=== PATIENT | female | born 1980 | race Caucasian/White ===

== ENCOUNTER → 2017-10-20 14:10 | Outpatient (CLI) | payer OTHER, SELFPAY ==
[2017-10-20 15:06] LABS: Absolute Lymphocyte Count 2.26 X10^3/ul (0.83-4.51); Absolute Neutrophil Count 3.9 X10^3/uL (2.0-7.7); Basophil# 0.02 X10^3/uL; Basophil% 0.3 % (0-1); Eosinophil# 0.11 X10^3/uL; Eosinophils% 1.6 % (0-5); Hematocrit 31.3 % (37-47); Hemoglobin 9.7 g/dl (12.0-15.0); Lymphocyte # 2.26 X10^3/ul (4.0); Mean Corpuscular Volume 90.5 fL (81-99); Mean Platelet Vol. 9.6 fl (6.2-12.0); Monocyte# 0.59 X10^3/uL; Monocyte% 8.6 % (0-10); Neutrophil # 3.86 X10^3/uL (2.7-7.7); Neutrophil % 56.5 % (47-70); Platelet Count 407 K/mm3 (150-450); RBC Distribution Width CV 16.3 % (11.6-14.6); RBC Distribution Width SD 53.9 fl (35.1-43.9); Red Blood Count 3.46 M/mm3 (4.2-5.4); White Blood Count 6.8 K/mm3 (4.4-11.0)
[2017-10-20 15:10] LABS: POSITIVE COUNT NO; POSITIVE DIFFERENTIAL NO; POSITIVE MORPHOLOGY NO
[2017-10-20 15:32] LABS: Ferritin 4 ng/mL (8-252); Iron 18 ug/dL (50-170)
== END ==
PROVIDERS: Family Provider Family Medicine; PCP Family Medicine; Visit Provider Family Medicine
DX: D50.9 Iron deficiency anemia, unspecified (principal)
CPT/HCPCS: 36415; 82728; 83540; 85025

== ENCOUNTER → 2017-10-30 09:33 | Outpatient (CLI) | payer OTHER, SELFPAY ==
[2017-10-30 09:41] VITALS: BP 118/66; PULSE 66; RESP 18; TEMP 36.4; O2SAT 98
== END ==
PROVIDERS: Family Provider Family Medicine; PCP Family Medicine; Visit Provider Family Medicine
DX: D50.9 Iron deficiency anemia, unspecified (principal)
CPT/HCPCS: 96365; J1756; J7050; A4216

== ENCOUNTER → 2017-11-07 09:53 | Outpatient (CLI) | payer OTHER, SELFPAY ==
[2017-11-07 10:03] VITALS: BP 108/62; PULSE 55; RESP 16; TEMP 36.7; O2SAT 100
== END ==
PROVIDERS: Family Provider Family Medicine; PCP Family Medicine; Visit Provider Family Medicine
DX: D50.9 Iron deficiency anemia, unspecified (principal)
CPT/HCPCS: 96365; J1756; A4216

== ENCOUNTER → 2017-11-27 10:28 | Outpatient (CLI) | payer OTHER, SELFPAY ==
[2017-11-27 10:34] VITALS: BP 115/60; PULSE 75; RESP 18; TEMP 36.3; O2SAT 97
== END ==
PROVIDERS: Family Provider Family Medicine; PCP Family Medicine; Visit Provider Family Medicine
DX: D50.9 Iron deficiency anemia, unspecified (principal)
CPT/HCPCS: 96365; J1756; A4216

== ENCOUNTER → 2017-12-02 10:28 | Outpatient (CLI) | payer OTHER, SELFPAY ==
[2017-12-02 10:34] VITALS: BP 117/66; PULSE 60; RESP 18; TEMP 36.5
== END ==
PROVIDERS: Family Provider Family Medicine; PCP Family Medicine; Visit Provider Family Medicine
DX: D50.9 Iron deficiency anemia, unspecified (principal)
CPT/HCPCS: 96365; J1756; J7050; A4216

== ENCOUNTER → 2018-02-20 10:05 | Outpatient (CLI) | payer OTHER, SELFPAY ==
--- NOTE | 2018-02-20 10:05 | DT_ITS ---
This patient was seen during an EMR downtime February 16, 2018 - February 23, 2018. This patient may have a combination of paper and electronic documentation or all paper documentation. All documentation is viewable within the e-chart portion of [facility] for each patient visit.
[2018-02-20 12:54] LABS: Basophil% 0.3 % (0-1); Eosinophils% 0.9 % (0-5); Hematocrit 31.4 % (37-47); Lymphocyte % 24.8 % (19-41); Mean Corp Hgb Conc 31.8 g/gl (32-36); Mean Corpuscular Hgb 28.1 pg (27.0-32.0); Mean Corpuscular Volume 88.2 fL (81-99); Mean Platelet Vol. 9.5 fl (6.2-12.0); Monocyte% 6.7 % (0-10); Neutrophil # 4.52 X10^3/uL (2.7-7.7); Neutrophil % 67.2 % (47-70); POSITIVE COUNT NO; POSITIVE DIFFERENTIAL NO; POSITIVE MORPHOLOGY NO; Platelet Count 403 K/mm3 (150-450); RBC Distribution Width CV 15.9 % (11.6-14.6); RBC Distribution Width SD 51.7 fl (35.1-43.9); Red Blood Count 3.56 M/mm3 (4.2-5.4); White Blood Count 6.7 K/mm3 (4.4-11.0)
[2018-02-20 12:55] LABS: Absolute Lymphocyte Count 1.67 X10^3/ul (0.83-4.51); Absolute Neutrophil Count 4.5 X10^3/uL (2.0-7.7); Basophil# 0.02 X10^3/uL; Eosinophil# 0.06 X10^3/uL; Lymphocyte # 1.67 X10^3/ul (4.0); Monocyte# 0.45 X10^3/uL; Total Cells Counted 0.01 (MANUAL DIFF)
[2018-02-20 14:46] LABS: Ferritin 8 ng/mL (8-252); Iron 90 ug/dL (50-170)
== END ==
PROVIDERS: Family Provider Family Medicine; PCP Family Medicine; Visit Provider Family Medicine
DX: D50.9 Iron deficiency anemia, unspecified (principal)
CPT/HCPCS: 36415; 82728; 83540; 85025

== ENCOUNTER → 2018-10-09 11:35 | Outpatient (CLI) | payer OTHER, SELFPAY ==
[2018-10-09 12:34] LABS: Absolute Lymphocyte Count 1.57 X10^3/ul (0.83-4.51); Absolute Neutrophil Count 5.2 X10^3/uL (2.0-7.7); Basophil# 0.03 X10^3/uL; Basophil% 0.4 % (0-1); Eosinophil# 0.06 X10^3/uL; Eosinophils% 0.8 % (0-5); Hematocrit 35.1 % (37-47); Hemoglobin 10.8 g/dl (12.0-15.0); Lymphocyte # 1.57 X10^3/ul (4.0); Lymphocyte % 21.1 % (19-41); Mean Corp Hgb Conc 30.8 g/gl (32-36); Mean Corpuscular Hgb 28.2 pg (27.0-32.0); Mean Corpuscular Volume 91.6 fL (81-99); Mean Platelet Vol. 9.9 fl (6.2-12.0); Monocyte# 0.57 X10^3/uL; Monocyte% 7.7 % (0-10); Neutrophil # 5.19 X10^3/uL (2.7-7.7); Neutrophil % 69.9 % (47-70); Platelet Count 412 K/mm3 (150-450); RBC Distribution Width CV 14.7 % (11.6-14.6); RBC Distribution Width SD 49.2 fl (35.1-43.9); Red Blood Count 3.83 M/mm3 (4.2-5.4); White Blood Count 7.4 K/mm3 (4.4-11.0)
[2018-10-09 12:38] LABS: POSITIVE COUNT NO; POSITIVE DIFFERENTIAL NO; POSITIVE MORPHOLOGY NO
[2018-10-09 12:39] LABS: Ferritin 8 ng/mL (8-252); Iron 37 ug/dL (50-170)
== END ==
PROVIDERS: Family Provider Family Medicine; PCP Family Medicine; Referring Provider Family Medicine; Visit Provider Family Medicine
DX: D50.9 Iron deficiency anemia, unspecified (principal); K91.1 Postgastric surgery syndromes
CPT/HCPCS: 36415; 82728; 83540; 85025

== ENCOUNTER → 2019-03-09 | Outpatient (CLI) | payer OTHER, SELFPAY ==
[2019-03-09 13:07] LABS: Absolute Lymphocyte Count 1.78 X10^3/ul (0.83-4.51); Absolute Neutrophil Count 4.1 X10^3/uL (2.0-7.7); Basophil# 0.03 X10^3/uL; Basophil% 0.5 % (0-1); Eosinophil# 0.09 X10^3/uL; Eosinophils% 1.4 % (0-5); Hematocrit 29.6 % (37-47); Hemoglobin 8.9 g/dl (12.0-15.0); Lymphocyte # 1.78 X10^3/ul (4.0); Lymphocyte % 27.3 % (19-41); Mean Corp Hgb Conc 30.1 g/gl (32-36); Mean Corpuscular Hgb 22.5 pg (27.0-32.0); Mean Corpuscular Volume 74.7 fL (81-99); Mean Platelet Vol. 9.3 fl (6.2-12.0); Monocyte# 0.53 X10^3/uL; Monocyte% 8.1 % (0-10); Neutrophil # 4.07 X10^3/uL (2.7-7.7); Neutrophil % 62.5 % (47-70); Platelet Count 433 K/mm3 (150-450); RBC Distribution Width CV 15.7 % (11.6-14.6); RBC Distribution Width SD 41.9 fl (35.1-43.9); Red Blood Count 3.96 M/mm3 (4.2-5.4); White Blood Count 6.5 K/mm3 (4.4-11.0)
[2019-03-09 13:10] LABS: POSITIVE COUNT NO; POSITIVE DIFFERENTIAL NO
[2019-03-09 13:11] LABS: Differential Indicated SCAN CRITERIA MET; POSITIVE MORPHOLOGY YES
[2019-03-09 13:40] LABS: Ferritin 2 ng/mL (8-252); Iron 14 ug/dL (50-170)
== END | disposition home or self-care (01) ==
PROVIDERS: Family Provider Family Medicine; PCP Family Medicine; Referring Provider Family Medicine; Visit Provider Family Medicine
DX: D50.9 Iron deficiency anemia, unspecified (principal)
CPT/HCPCS: 36415; 82728; 83540; 85025

== ENCOUNTER → 2019-03-16 | Outpatient (CLI) | payer OTHER, SELFPAY ==
[2019-03-16 12:39] VITALS: BP 106/55; PULSE 64; RESP 16; TEMP 36.7; O2SAT 99; BMI 35.3
== END | disposition home or self-care (01) ==
LOC: MEDOUTP 12:35
PROVIDERS: Family Provider Family Medicine; PCP Family Medicine; Referring Provider Family Medicine; Visit Provider Family Medicine
DX: D50.9 Iron deficiency anemia, unspecified (principal)
CPT/HCPCS: 96365; J1756; J7050; A4216

== ENCOUNTER → 2019-03-26 | Outpatient (CLI) | payer OTHER, SELFPAY ==
[2019-03-16 12:39] VITALS: BMI 35.3
[2019-03-26 13:58] VITALS: BP 120/52; PULSE 76; RESP 16; TEMP 36.6; O2SAT 100; BMI 35.5
== END | disposition home or self-care (01) ==
LOC: MEDOUTP 13:26
PROVIDERS: Family Provider Family Medicine; PCP Family Medicine; Referring Provider Family Medicine; Visit Provider Family Medicine
DX: D50.9 Iron deficiency anemia, unspecified (principal)
CPT/HCPCS: 96365; J1756; J7050; A4216

== ENCOUNTER 2019-04-11 13:15 | Emergency (ER) | payer OTHER, SELFPAY ==
[2019-03-26 13:58] VITALS: BMI 35.5
[2019-04-11 13:15] VITALS: BP 103/65; PULSE 66; RESP 14; TEMP 36.6; O2SAT 99; BMI 35.2
--- NOTE | 2019-04-11 13:37 | RAD_ITS ---
STUDY: X-RAY - RIGHT ANKLE REASON FOR EXAM: Female, 39 years old. Injury and fall TECHNIQUE: 3 view(s) of the ankle. COMPARISON: None. FINDINGS: Nondisplaced lateral malleolar fracture. Oblique fracture of the medial malleolus also seen. No definite fracture of the posterior malleolus seen however. Anterior process of the calcaneus is within normal limits. Subtle nondisplaced fracture of the base of the fifth metatarsal also seen. IMPRESSION: Nondisplaced fracture of the base of the fifth metatarsal which appears slightly comminuted. Nondisplaced fracture of the medial malleolus and comminuted oblique fracture of the distal tibia extending into the medial malleolus. Electronically Signed: Ananth Perez, at 13:56 EDT Tel , Service support , RAD/Ankle min 3 Views
--- NOTE | 2019-04-11 13:42 | ED.VIS.LOWEX ---
History of Present Illness <ZimmermanJamie - Last Filed: 04/11/19 14:26> Informant: Patient Occurred: Yesterday Mechanism/Context: Fall Onset: Yesterday Context: Sudden Onset Timing: Continuous Quality of Pain: Sharp Location: Right ankle Current Severity: Moderate Maximum Severity: Severe Worsened by: Movement, ambulation Relieved by: Rest Associated Symptoms: - - Swelling and bruising. Negative for: Parasthesia, Weakness, Loss of Funtion Narrative: 39-year-old female presents with right ankle injury. Patient was walking in high heels last night inverted her right ankle and fell to the ground. She has been having pain and swelling in her right ankle and woke up this morning with bruising as well. She is still able to ambulate. She has not had any numbness tingling or weakness. She denies any other injuries. Tetanus Immunization: <5 years Prior similar symptoms: No Recent Illness/Hospitalization: No <Angel Rodriguez - Last Filed: 04/11/19 14:30> Chief Complaint: Lower Extremity Injury Past Medical History <ErasmoJamie - Last Filed: 04/11/19 14:26> Prior records reviewed: Yes Past Medical History: None Surgical History: no surgical history Lives: With Family Smoking Status: Never smoker Alcohol: Occasional Drugs: None <Angel Rodriguez - Last Filed: 04/11/19 14:30> - Allergies and Home Meds Allergies/Adverse Reactions: Allergies No Known Allergies Allergy (Verified 04/11/19 13:17) Primary Care Physician: Jalen Ball DO [Primary Care Provider] - Ej Castro MD [STAFF PHYSICIAN] - Review of Systems All systems negative except as indicated General: Denies: Chills, Fever Musculoskeletal: Reports: Extremity Pain Neurological: Denies: Weakness, Parasthesia <Angel Rodriguez - Last Filed: 04/11/19 14:30> Physical Exam Vital Signs/Narrative: Vital Signs Temp Pulse Resp BP Pulse Ox 04/11/19 13:15 97.9 F 66 14 103/65 99 <ZimmermanJamie - Last Filed: 04/11/19 14:26> Vital Signs/Narrative: Vital Signs Temp Pulse Resp BP Pulse Ox 04/11/19 13:15 97.9 F 66 14 103/65 99 Inital Vital Signs reviewed: Yes - Extremity Exam Right Ankle: Contusion, Edema, Limited ROM, - - Swelling and bruising right lateral ankle around the lateral malleolus with bony tenderness in this area. No proximal fibular tenderness on palpation. No bony tenderness of the foot or at the base of the fifth metatarsal. Limited plantarflexion and dorsiflexion secondary to pain and swelling. DP and PT pulse normal. Normal capillary refill and sensation of all 5 toes. General: Well nourished, Well developed Head: Normocephalic, Atraumatic Eyes: Perrl, EOMI ENT: No Trauma Neck: Nontender, Full ROM Cardiovascular: Regular rate, Regular rhythm Respiratory: No distress, CTA bilaterally, Chest nontender Abdomen: Soft, Nontender, Nondistended, Normal bowel sounds, No masses Back: Nontender Skin: Normal color, No rash, Trauma Neurological: Alert, Oriented x3 Psychological: Normal affect, Normal Mood <Angel Rodriguez - Last Filed: 04/11/19 14:30> Diagnostic/Tx/Re-eval - Medical Decision Making Evaluate in this patient with our physician assistant chief engineer. Fell yesterday in her home. Twisting her right ankle causing pain and swelling. Today when she is unable to bear weight she decided come in to have it evaluated. Physical exam HEENT, heart and lung abdominal exam are unremarkable. Back is nontender. She is moving all 4 extremities. Neurovascular intact. She has mild swelling and pain on palpation to both the medial lateral malleolus and the base of her fifth metatarsal. Foot otherwise neurovascularly intact. She is able to wiggle her toes. Has a normal DP pulse. Has normal touch sensation. X-rays of the right ankle reveals a bimalleolar nondisplaced fracture both the medial and lateral malleolus. Also a fracture of the base of the fifth metatarsal. Patient placed in a short leg posterior splint by ER. Nonweightbearing and crutches. Impression: 1. Acute fall 2. Acute right ankle bimalleolar fracture and base of the fifth metatarsal fracture 3. Short leg posterior splint by ER <Jamie Zimmerman - Last Filed: 04/11/19 14:26> Procedures - Lower Extremity Splints Lower Extremity Splint: OrthogMiguel johnruroxy Splint Fabrication: Fabricated Location: Right <Angel Rodriguez - Last Filed: 04/11/19 14:30> ED Disposition <Jamie Zimmerman - Last Filed: 04/11/19 14:26> <Angel Rodriguez - Last Filed: 04/11/19 14:30> - Plan for ED Patient: Disposition: Home or Assisted Living Diagnosis: Bimalleolar fracture of right ankle, Fracture of fifth metatarsal bone Instructions: FRACTURE, Ankle (General), FRACTURE, Foot Referrals: Jalen Ball DO [Primary Care Provider] - Ej Castro MD [STAFF PHYSICIAN] -
[2019-04-11 14:45] VITALS: BP 104/62; PULSE 74; RESP 18
== END 2019-04-11 14:46 | disposition home or self-care (01) ==
PROVIDERS: Emergency Provider Physician Assistant Medical; Family Provider Family Medicine; PCP Family Medicine
DX: S82.844A Nondisplaced bimalleolar fracture of right lower leg, initial encounter for closed fracture (principal); S92.354A Nondisplaced fracture of fifth metatarsal bone, right foot, initial encounter for closed fracture; X50.1XXA Overexertion from prolonged static or awkward postures, initial encounter; Y93.01 Activity, walking, marching and hiking; Y92.89 Other specified places as the place of occurrence of the external cause; Y99.8 Other external cause status
CPT/HCPCS: 29515; 73610; 99283

== ENCOUNTER → 2019-04-12 | Outpatient (CLI) | payer OTHER, SELFPAY ==
[2019-04-11 13:15] VITALS: BMI 35.2
--- NOTE | 2019-04-12 15:28 | EKG12_ITS ---
Test Reason : PRE-OP Blood Pressure : / mmHG Vent. Rate : 076 BPM Atrial Rate : 076 BPM P-R Int : 138 ms QRS Dur : 098 ms QT Int : 408 ms P-R-T Axes : 029 019 -06 degrees QTc Int : 459 ms Normal sinus rhythm Normal ECG Confirmed by SHITAL CAMPOS, SOCORRO ([id number]), social media editor TRISTIN GREEN ([id number]) on 04/14/2019 10:33:21 AM Referred By: Bonnie Gandhi Confirmed By:SOCORRO ISAACS MD
[2019-04-12 15:45] LABS: Hematocrit 30.6 % (37-47); Hemoglobin 9.3 g/dL (12.0-15.0); Mean Corp Hgb Conc 30.4 g/dL (32-36); Mean Corpuscular Volume 79.1 fL (81-99); Mean Platelet Vol. 9.9 fl (6.2-12.0); POSITIVE MORPHOLOGY YES; RBC Distribution Width CV 20.5 % (11.6-14.6); RBC Distribution Width SD 57.5 fl (35.1-43.9); Red Blood Count 3.87 M/mm3 (4.2-5.4); White Blood Count 7.2 K/mm3 (4.4-11.0)
[2019-04-12 16:05] LABS: Scan Indicated on CBC? Y/N YES- FLAGS NOTED
[2019-04-12 16:23] LABS: Anion Gap 6 (5-15); BUN 10 mg/dL (7-18); BUN/Creat Ratio 13.4 RATIO (10-20); Calcium,Total 8.4 mg/dL (8.5-10.1); Chloride 111 mmol/L (98-107); Creatinine, Serum 0.75 mg/dL (0.55-1.02); EST Glomerular Filtration Rate 92 mL/min (>60); Est Glom Filt Rate - Afr Amer 111 mL/min (>60); Glucose 207 mg/dL (74-106); Potassium 3.8 mmol/L (3.5-5.1); Sodium Level 141 mmol/L (136-145)
[2019-04-12 18:08] LABS: Platelet Count 355 K/mm3 (150-450)
[2019-04-12 22:01] LABS: Vitamin D,25 Hydroxy 22.7 ng/mL (29.95-100.01)
== END | disposition home or self-care (01) ==
LOC: LAB 15:11
PROVIDERS: Family Provider Family Medicine; PCP Family Medicine; Referring Provider Podiatrist Foot & Ankle Surgery; Visit Provider Podiatrist Foot & Ankle Surgery
DX: Z01.818 Encounter for other preprocedural examination (principal)
CPT/HCPCS: 36415; 80048; 82306; 85027; 86850; 86900; 93005

== ENCOUNTER → 2019-04-13 | Outpatient (CLI) | payer OTHER, SELFPAY ==
[2019-04-11 13:15] VITALS: BMI 35.2
[2019-04-13 17:22] LABS: Hemoglobin A1c 4.9 % (4.2-6.3)
== END | disposition home or self-care (01) ==
LOC: LAB.FUTURE 14:56
PROVIDERS: Family Provider Family Medicine; PCP Family Medicine; Referring Provider Podiatrist Foot & Ankle Surgery; Visit Provider Podiatrist Foot & Ankle Surgery
DX: S82.841A Displaced bimalleolar fracture of right lower leg, initial encounter for closed fracture (principal); S92.352A Displaced fracture of fifth metatarsal bone, left foot, initial encounter for closed fracture
CPT/HCPCS: 36415; 83036

== ENCOUNTER 2019-04-20 05:50 | Day surgery (SDC) | payer OTHER, SELFPAY ==
[2019-04-20 06:33] LABS: Internal QC Validated? YES +Cl - CLEAR BKGD; Pregnancy, Urine Negative Negative
[2019-04-20 06:38] LABS: International Normalized Ratio 1.1; Prothrombin Time (Protime)PT. 14.4 SECONDS (11.7-14.9)
[2019-04-20 06:39] LABS: Partial Thromboplast Time 32.9 Seconds (24.1-36.2)
[2019-04-20 06:41] VITALS: BP 106/58; PULSE 68; RESP 16; TEMP 36.3; O2SAT 98; BMI 36.0
--- NOTE | 2019-04-20 07:30 | RAD_ITS ---
STUDY: X-RAY - RIGHT ANKLE REASON FOR EXAM: Female, 39 years old. ORIF of the fibular fracture. TECHNIQUE: For intraoperative view(s) of the ankle. COMPARISON: None. FINDINGS: Intraoperative imaging provided for open reduction and fixation of the distal fibular fracture. RAD/Ankle min 3 Views IMPRESSION: Intraoperative imaging provided for open reduction and fixation of the distal fibular fracture. Electronically Signed: Jon Pederson, at 10:16 EDT , Service support ,
[2019-04-20] MEDS: Cefazolin 2 GM in 0.9% Normal Saline 100 ML IV (07:34)
--- NOTE | 2019-04-20 08:10 | RAD_ITS ---
STUDY: X-RAY - RIGHT FOOT CLINICAL: Female, 39 years old. ORIF. TECHNIQUE: 6 cone-down intraoperative view(s) of the foot. COMPARISON: Comparison is made with prior examination dated April 11, 2019. FINDINGS: The patient is status post open reduction and internal fixation of the transverse fracture at the base of the fifth metatarsal. There is good alignment. RAD/Foot min 3 Views IMPRESSION: Intraoperative services provided for open reduction internal fixation of the transverse fracture at the base of the fifth metatarsal. There is good alignment. Electronically Signed: Jon Pederson, at 10:09 EDT , Service support ,
[2019-04-20] MEDS: Bupivacaine Mpf 0.5% 30 ML VIAL (08:30)
[2019-04-20 10:28] VITALS: BP 106/58; BP 117/69; PULSE 89; RESP 14; TEMP 36.8; O2SAT 98
--- NOTE | 2019-04-20 10:34 | RAD_ITS ---
STUDY: X-RAY - RIGHT ANKLE REASON FOR EXAM: Female, 39 years old. Status post ORIF of the distal fibula and distal tibia. TECHNIQUE: 3 view(s) of the ankle. COMPARISON: Comparison is made with prior study dated April 20, 2019 and April 11, 2019. FINDINGS: The patient is status post open reduction and internal fixation of distal tibial and fibular fractures. There is good alignment.. Normal tibiotalar articulation and ankle mortise. Normal visualized talus and calcaneus. The visualized subtalar, talonavicular, calcaneocuboid and tarsal articulations are normal. Postoperative soft tissue changes. RAD/Ankle min 3 Views IMPRESSION: Status post open reduction and internal fixation of the distal fibular and tibial fractures. There is good alignment. Postoperative soft tissue swelling. Electronically Signed: Jon Pederson, at 13:45 EDT , Service support ,
--- NOTE | 2019-04-20 10:35 | RAD_ITS ---
STUDY: X-RAY - RIGHT FOOT CLINICAL: Female, 39 years old. Postoperative examination. TECHNIQUE: 3 view(s) of the foot. COMPARISON: Comparison is made with prior examination dated April 20, 2019 and April 11, 2019. FINDINGS: Normal talus, calcaneus, and tarsal bones. Normal visualized subtalar, talonavicular, calcaneocuboid, tarsal and tarsometatarsal articulations. The patient is status post screw fixation of the transverse fracture at the base of the fifth metatarsal. Good alignment. The patient is also status post open reduction and internal fixation of the distal fibular and tibial fractures. Normal metatarsophalangeal joint of the great toe. Normal tibial and fibular sesamoid bones. Normal interphalangeal joint of the great toe. Normal phalanges of the great toe. Normal second through fifth metatarsophalangeal joints. Normal interphalangeal joints and phalanges of the lesser toes. Postoperative soft tissue changes. RAD/Foot min 3 Views IMPRESSION: Status post open reduction and internal fixation of the transverse fracture at the base of the fifth metatarsal as well as the fracture involving the distal fibula and distal tibia. There is good alignment. Postoperative soft tissue changes. Electronically Signed: Jon Pederson, at 13:44 EDT , Service support ,
--- NOTE | 2019-04-20 10:39 | PCM.OPRPT ---
Report of Operation Date of Procedure: 04/20/19 Pre-Operative Diagnosis: R bimalleolar fx; R 5th metatarsal fracture Post-Operative Diagnosis: same Surgery/Procedure Performed:: R ankle bimalleolar ORIF; R 5th metatarsal ORIF junior linux administrator: Soo Maldonado Type of Anesthesia:: General/Regional, General/Supplemental Estimated Blood Loss (mL): minimal Description of Procedure: Indications: Pt is a 39yo F who fell 04/10/19 while wearing high heels. She sustained a R bimalleolar fracture and R 5th metatarsal base fracture. She was seen in the ER and then followed up in my clinic. Nonoperative and operative interventions were discussed. PT elected surgical intervention given the nature of her fractures. She was seen by her PCP for pre operative medical clearance and risk stratification, along with pre operative labs and studies. Pt presents today for surgical intervention. Pt is aware I will be leaving the practice at the end of the month. She was given the opportunity to see another surgeon in the practice or community. She is aware I will not be part of her entire post operative period. She understands and agreed to have surgery by me knowing this. All risks, complications, and alternatives were discussed with the patient, and the patient signed an informed consent. No guarantees were given. Procedure: On 04/20/2019, Liza Gomez was visually and verbally identified in the preoperative holding area. The consent form was again reviewed with the patient, as were all risks, complications, and alternatives and the patient wished to proceed with the proposed surgery. The right foot/ankle was marked as the correct operative extremity. The patient was brought to the operating room and placed on the operating room table in the normal SUPINE position. After induction by anesthesia, a surgical time out was performed and all present were in agreement. a pneumatic thigh tourniquet was then placed. At this time the right lower extremity was prepped and draped in the usual sterile fashion. after exsanguination with an esmarch the tourniquet was inflated to 300 mmHg. At this time attention was directed to the right lateral ankle. Using a #15 blade a curvilinear incision was made over the distal fibular fracture.The incision was bluntly carried deep through the subcutaneous tissues with careful attention paid to all bleeders, which were clamped and tied or bovied as necessary. All vital neurovascular structures were retracted. The fracture was identified. Using ronguers and a #15 blade all impinging soft tissue was removed. The fracture was distracted and reduced. This was held by a temporary k wire. Reduction was confirmed by direct visualization and on intraoperative fluoroscopy. A anne plate was then placed using a combination of nonlocking and locking screws. Plate placement and screw length was verified on intraoperative fluoroscopy. The k wire was removed. At this time attention was directed to the right medial ankle. Using a #15 blade a curvilinear incision was made over the medial malleolar fracture.The incision was bluntly carried deep through the subcutaneous tissues with careful attention paid to all bleeders, which were clamped and tied or bovied as necessary. All vital neurovascular structures were retracted. Using ronguers and a #15 blade all impinging soft tissue was removed. The fracture was distracted and reduced. This was held by a temporary k wire. Reduction was confirmed by direct visualization and on intraoperative fluoroscopy. A Anne plate was then placed using a combination of nonlocking and locking screws. Plate placement and screw length was verified on intraoperative fluoroscopy. The k wire was removed. Attention was then turned to the base of the 5th metatarsal. Using intraoperative fluoroscopy, to visualize my planes. A Guidewire was then placed for the Anne screw. Again this was done while checking multiple planes on intraoperative fluoroscopy. A 4.0 cannulated screw was then placed by AO technique while axial compression was applied. Good compression of the fracture was noted with good alignment. An additional 13 cc of 0.5% marcaine plain was injected at the medial malleolus to complement the RLE block placed by anesthesia pre operatively. Betadine soaked adaptic was then applied to the incisions with dry sterile dressings. A multi layer compressive dressing was then placed wit rosado well padded posterior splint. Total tourniquet time was 120 minutes with immediate capillary refill noted to all digits upon deflation. Intra operative fluoroscopy was utilized throughout the case, > 1 hour, to aid in visualization and confirmation of fracture reduction and screw and plate fixations. Interpretation of the images was vital to my decision making process. The patient tolerated the procedure and anesthesia well. The patient was then transported to the postanesthesia care unit by a member of the anesthesia team and myself with all vital signs stable and neurovascular status of the right lower extremity equal to pre-operative levels. At the end of the case all sponge, needle and instrument counts were found to be correct. Grafts/Implants Used: [place] plates and screws - Complications none - Admit VTE Documentation VTE Present on Admission: No VTE Mechan Device Prophylaxis: SCD's, Knee High JEANMARIE Hose VTE Pharm Prophylaxis ordered?: Yes
--- NOTE | 2019-04-20 10:51 | DCINST_ITS ---
Discharge Activity: May Not Drive, May not drive while taking narcotic pain medications., May Not Shower, Use Walker, Use Crutches Ice area for (Minutes): 20 - Apply ice behind right knee 20 minutes of each hour while awake Weight Bearing Status: No weight bearing Keep extremity elevated above heart level: Operative Extremity Call your doctor if your incision/area has: Sudden Increased Bleeding Call your doctor if you observe: Fever of 101 or Higher, Shortness of breath, Dizziness, Chest pain, Increased palpitations (irregular heartbeat), Calf discomfort, Uncontrolled pain Allergies/Adverse Reactions: Allergies No Known Allergies Allergy (Verified 04/19/19 08:09) Medications to take at Discharge Cholecalciferol (Vitamin D3) [Vitamin D3] 5,000 units DAILY 02/27/15 Fluoxetine [Prozac] 40 mg PO DAILY 01/08/17 Acetaminophen 1,000 mg PO Q8 #30 tab 04/20/19 traMADol [Ultram] 50 mg PO Q4H PRN PRN 7 Days #28 tab 04/20/19 The following prescriptions were given: Acetaminophen 1,000 mg PO Q8 #30 tab Prescription Printed traMADol [Ultram] 50 mg PO Q4H PRN PRN 7 Days #28 tab PRN Reason: pain Prescription Printed Primary Care Physician: Jalen Ball DO [Primary Care Provider] - Test Results: Test results from this visit will be discussed in further detail at your follow- up appointment, if applicable. Please Follow Up With: Bonnie Gandhi DPM When: Please follow up next week at your previously scheduled post operative appt Proposed Discharge Date: 04/20/19
[2019-04-20 10:59] VITALS: BP 106/58; BP 127/89; PULSE 79; RESP 14; O2SAT 76
[2019-04-20 11:07] VITALS: BP 106/58; BP 127/89; PULSE 83; RESP 18; TEMP 36.8; O2SAT 99
[2019-04-20] MEDS: traMADol 50 MG Tablet PO (11:25)
[2019-04-20 12:04] VITALS: BP 106/58; BP 115/55; PULSE 84; RESP 16; TEMP 36.9; O2SAT 98
== END 2019-04-20 12:14 | disposition home or self-care (01) ==
LOC: SDC 05:51 → AC 05:51
PROVIDERS: Anesthesiology; Family Provider Family Medicine; PCP Family Medicine; Referring Provider Podiatrist Foot & Ankle Surgery; Visit Provider Podiatrist Foot & Ankle Surgery
PROC: (CPT 27814; principal; 2019-04-20 07:10)
DX: S82.841A Displaced bimalleolar fracture of right lower leg, initial encounter for closed fracture (principal); S92.351A Displaced fracture of fifth metatarsal bone, right foot, initial encounter for closed fracture; D50.9 Iron deficiency anemia, unspecified; K91.1 Postgastric surgery syndromes; F41.9 Anxiety disorder, unspecified; F32.9 Major depressive disorder, single episode, unspecified; Z98.84 Bariatric surgery status; Z79.899 Other long term (current) drug therapy; X50.1XXA Overexertion from prolonged static or awkward postures, initial encounter; Y93.01 Activity, walking, marching and hiking; Y92.89 Other specified places as the place of occurrence of the external cause; Y99.8 Other external cause status
CPT/HCPCS: 27814; 28485; 36415; 73610; 73630; 76000; 81025; 85610; 85730; C1713; J7120; J2405

== ENCOUNTER 2019-06-15 11:00 | Outpatient (RCR) | payer OTHER, SELFPAY ==
--- NOTE | 2019-06-01 15:02 | HP.PTEVAL_ITS ---
Patient's Visit Information TRISTIN STORY is a 39 year old F referred to Physical Therapy by Sly Castro DPM with a diagnosis of R Ankle Fracture. Date of Evaluation: 06/01/19 Physical Therapist: Mady Cannon DPT - Visit Plan Frequency: 2x /Week Duration: 4 Weeks Plan: Focus on LE s/s, balance training, gait training, decreasing pain, & progressing pt. as tolerated PWB outside of CAM boot. Cleared for PWB 06/07/19. 06/01/19 HEP Prescribed: Ankle circles, ankle pumps, ankle inv/tfif, ankle ABC, gastroc str, towel scrunches - Subjective Findings: Fell 04/10, surgery on 04/20 x-rays - broke both malleoli & 5th me tatarsal. Placed in CAM boot 1 month ago, told she would PWB for 2 weeks. Has been moving well around the house. Pt. reports pushing herself t/o the day w/ little pain. 1 story home w/ steps into the house w/ no issues. Has help around the house if needed, 2 cats at home. Currently not driving. Worst: 4/10 Aggravting factors: WBing. Pain free at times Relieving factors: motring, rest, ice. Does not disrupt sleep. Has had some numbness on lateral side of R foot, has began to come back. Describes pain as an ache, mostly localized to med. malleoli. Reports she has been taking boot off at times & trying to place Weight through it. Has exogen bone stimulator has been used at home w/ much effect. Exercise program: cardio/strength training Leisure activities: yard work, walking/hiking. Occupation: Works as nurse at [employer]. PMH/Meds: no singificant concerns. Wants to return to work, follow up with doctor 06/07/19 to progress to PWB then will return to MD for full WB in 2 weeks after. - Objective NON COMPLIANT WITH PWB. Posture: RS, FH - correct, but not maintained. Gait: CAM boot R foot, antalgic, decreased elliot is FWB in boot- non compliance with WB restrictions. HR/TR: Seated WNL. ROM: Knee WFL, Ankle DF 8 degrees PF 35 degrees Tiff 30 degrees INv 30 degrees. Strength: Knee 5/5, Ankle 4+/5 with pain. Flexibility: Gastroc: Mod. Soleus: mod. Hamstring: mild. Palpation: slightly tender at med. malleoli. Sensation: WNL to gross B touch. Girth: 22 cm met heads, 25.5 cm malleoli, 55 cm fig. 8 - Goals Goal 1:: Pt. will be I w/ HEP & progression Goal Time Frame: 4-6 Weeks Goal 2:: Pt. will be able to SLS R for 10 seconds w/ no UE support as WB restrictions apply Goal Time Frame: 4-6 Weeks Goal 3:: Pt. will be able to amb. >300 ft w/ normalized gait pattern & no AD as WB restrictions apply Goal Time Frame: 4-6 Weeks - Rehabilitation Potential Physical Therapy Diagnosis: Presents w/ hypomobility, antalgic gait, impaired muscle performance/ROM, difficulty WBing, & pain which leads to difficulty performing ADL's. Rehabilitation Potential: Good - Anticipated Interventions Patient/Client Instruction: Educate patient on: Condition For the Purpose of:: To decrease pain Therapeutic Exercise to Include: Strength training, Endurance training, Balance training, Flexibilty training, Gait and locomotor training, Passive ROM, Active ROM, Dynamic Lumbar Stabilization For the Purpose of:: To improve muscle performance and motor function Functional Training to Include: Gait training For the Purpose of:: To improve muscle performance and motor function Cryotherapy (ice pack, ice massage): Yes Thermo therapy (hot pack): Yes Ultrasound (thermal/non thermal): Yes For the Purpose of:: To decrease pain Thank you for the opportunity to evaluate your patient. For Medicare and Medicare HMO plans, please review the plan of care and approve it. It will need to be FAXED BACK to us at [phone] for Medicare purposes. For Medicare only, by signing this I certify the plan of care. Please let me know if there are questions or concerns regarding this plan of care. Physician Signature: Date:
--- NOTE | 2019-08-31 11:54 | HP.PT.NRP ---
HP - Discharge Summary (1) - Patient Information TRISTIN STORY was seen in my office for initial evaluation on 06/01/19. The following Plan of Care was established for this patient: Initial Frequency: 2x /Week Initial Duration: 4 Weeks - Anticipated Interventions Patient/Client Instruction: Educate patient on: Condition For the Purpose of:: To decrease pain Therapeutic Exercise to Include: Strength training, Endurance training, Balance training, Flexibilty training, Gait and locomotor training, Passive ROM, Active ROM, Dynamic Lumbar Stabilization For the Purpose of:: To improve muscle performance and motor function Functional Training to Include: Gait training For the Purpose of:: To improve muscle performance and motor function Cryotherapy (ice pack, ice massage): Yes Thermo therapy (hot pack): Yes Ultrasound (thermal/non thermal): Yes For the Purpose of:: To decrease pain This patient was last seen in our office . Pertinent comments regarding their Physical therapy will appear below: Patient has not attended physical therapy in over 4 weeks- appropriate for d/c and return to MD as appropriate. At this point I will be discontinuing this patient from physical therapy. I would be happy to see this patient again in the future if found appropriate by the physician. Thank you! Mady Cannon DPT
== END 2019-06-15 19:00 | disposition home or self-care (01) ==
LOC: PT 11:00
PROVIDERS: Family Provider Family Medicine; PCP Family Medicine; Referring Provider Podiatrist Foot & Ankle Surgery; Visit Provider Podiatrist Foot & Ankle Surgery
DX: S82.841D Displaced bimalleolar fracture of right lower leg, subsequent encounter for closed fracture with routine healing (principal); S92.351D Displaced fracture of fifth metatarsal bone, right foot, subsequent encounter for fracture with routine healing
CPT/HCPCS: 97110; 97161

== ENCOUNTER → 2019-09-03 17:40 | Outpatient (CLI) | payer OTHER, SELFPAY | PROVIDERS: Family Provider Family Medicine; PCP Family Medicine; Referring Provider Obstetrics & Gynecology; Visit Provider Obstetrics & Gynecology | DX: Z12.4 Encounter for screening for malignant neoplasm of cervix (principal); Z11.3 Encounter for screening for infections with a predominantly sexual mode of transmission ==

== ENCOUNTER → 2019-11-09 14:24 | Outpatient (CLI) | payer OTHER, SELFPAY ==
[2019-11-09 17:42] LABS: Absolute Lymphocyte Count 1.71 X10^3/uL (0.83-4.51); Absolute Neutrophil Count 3.7 X10^3/uL (2.0-7.7); Basophil# 0.04 X10^3/uL; Basophil% 0.6 % (0-1); Eosinophil# 0.13 X10^3/uL; Eosinophils% 2.1 % (0-5); Hematocrit 23.6 % (37-47); Hemoglobin 6.2 g/dL (12.0-15.0); Lymphocyte # 1.71 X10^3/ul (4.0); Lymphocyte % 27.2 % (19-41); Mean Corp Hgb Conc 26.3 g/dL (32-36); Mean Corpuscular Volume 68.6 fL (81-99); Mean Platelet Vol. 9.7 fl (6.2-12.0); Monocyte# 0.74 X10^3/uL; Monocyte% 11.8 % (0-10); NRBC Flagged by Analyzer 0 % (0-5); Neutrophil # 3.65 X10^3/uL (2.7-7.7); Platelet Count 531 K/mm3 (150-450); RBC Distribution Width CV 19.8 % (11.6-14.6); Red Blood Count 3.44 M/mm3 (4.2-5.4); White Blood Count 6.3 K/mm3 (4.4-11.0)
[2019-11-09 18:06] LABS: Ferritin 2 ng/mL (8-252); Iron 10 ug/dL (50-170)
== END ==
PROVIDERS: PCP Family Medicine; Referring Provider Family Medicine; Visit Provider Family Medicine
DX: D50.9 Iron deficiency anemia, unspecified (principal)
CPT/HCPCS: 36415; 82728; 83540; 85025

== ENCOUNTER → 2019-11-11 08:25 | Outpatient (CLI) | payer OTHER, SELFPAY ==
[2019-11-11] VITALS (8 sets, daily range): BP systolic 99–120; BP diastolic 50–60; PULSE 65–93; RESP 14–18; TEMP 36–36.6; O2SAT 98–100; BMI 37.8
== END ==
PROVIDERS: PCP Family Medicine; Referring Provider Family Medicine; Visit Provider Family Medicine
DX: D50.9 Iron deficiency anemia, unspecified (principal)
CPT/HCPCS: 36415; 36430; 86850; 86900; 86901; 86920; 86922; J7040; P9016; A4216

== ENCOUNTER → 2020-06-16 10:07 | Outpatient (CLI) | payer OTHER, SELFPAY ==
[2019-12-23 14:05] VITALS: BMI 36.1
[2020-06-16 10:14] VITALS: BP 96/57; PULSE 62; RESP 16; TEMP 36.4; O2SAT 99; BMI 35.2
[2020-06-16] MEDS: 0.9% NaCl Peripheral Flush Adult/Peds IV (10:19)
[2020-06-16] MEDS: 0.9% NaCl IVPB Med Flush (250 mL) 15 ML IV (10:20)
[2020-06-16 11:21] VITALS: BP 103/64; PULSE 56; RESP 16
== END ==
PROVIDERS: PCP Family Medicine; Referring Provider Family Medicine; Visit Provider Family Medicine
DX: D50.9 Iron deficiency anemia, unspecified (principal)
CPT/HCPCS: 96365; J1756; J7050; A4216

== ENCOUNTER → 2020-06-21 07:40 | Outpatient (CLI) | payer OTHER, SELFPAY ==
[2019-12-23 14:05] VITALS: BMI 36.1
[2020-06-16 10:14] VITALS: BMI 35.2
[2020-06-21 08:00] VITALS: BP 116/50; PULSE 59; RESP 16; TEMP 36.1; O2SAT 98; BMI 36.0
[2020-06-21] MEDS: 0.9% NaCl Peripheral Flush Adult/Peds IV (08:38)
[2020-06-21] MEDS: 0.9% NaCl IVPB Med Flush (250 mL) 15 ML IV (08:38)
== END ==
PROVIDERS: PCP Family Medicine; Referring Provider Family Medicine; Visit Provider Family Medicine
DX: D50.9 Iron deficiency anemia, unspecified (principal)
CPT/HCPCS: 96365; J1756; J7050; A4216

== ENCOUNTER → 2020-06-28 10:01 | Outpatient (CLI) | payer OTHER, SELFPAY ==
[2020-06-21 08:00] VITALS: BMI 36.0
[2020-06-28 10:09] VITALS: BP 115/58; PULSE 59; RESP 16; TEMP 36.4; O2SAT 100
[2020-06-28 11:11] VITALS: BP 113/59; PULSE 55; RESP 18; TEMP 36.5; O2SAT 100
== END ==
PROVIDERS: PCP Family Medicine; Referring Provider Family Medicine; Visit Provider Family Medicine
DX: D50.9 Iron deficiency anemia, unspecified (principal)
CPT/HCPCS: 96365; J1756; J7050; A4216

== ENCOUNTER → 2020-07-05 08:09 | Outpatient (CLI) | payer OTHER, SELFPAY ==
[2020-06-21 08:00] VITALS: BMI 36.0
[2020-07-05 08:16] VITALS: BP 103/62; PULSE 76; RESP 16; TEMP 36.2; O2SAT 100; BMI 36.0
[2020-07-05] MEDS: 0.9% NaCl Peripheral Flush Adult/Peds IV (08:21)
[2020-07-05] MEDS: 0.9% NaCl IVPB Med Flush (250 mL) 15 ML IV (08:25)
[2020-07-05 09:12] VITALS: BP 105/60; PULSE 74; RESP 16; TEMP 36.2; O2SAT 100
== END ==
PROVIDERS: PCP Family Medicine; Referring Provider Family Medicine; Visit Provider Family Medicine
DX: D50.9 Iron deficiency anemia, unspecified (principal)
CPT/HCPCS: 96365; J1756; J7050; A4216

== ENCOUNTER → 2020-07-12 07:34 | Outpatient (CLI) | payer OTHER, SELFPAY ==
[2020-07-05 08:16] VITALS: BMI 36.0
[2020-07-12 07:54] VITALS: BP 123/59; PULSE 78; RESP 16; TEMP 36.7; O2SAT 98; BMI 36.0
[2020-07-12] MEDS: 0.9% NaCl IVPB Med Flush (250 mL) 15 ML IV (08:05)
[2020-07-12] MEDS: 0.9% NaCl Peripheral Flush Adult/Peds IV (08:05)
[2020-07-12 08:25] LABS: Absolute Lymphocyte Count 2.02 X10^3/uL (0.83-4.51); Absolute Neutrophil Count 6.2 X10^3/uL (2.0-7.7); Basophil# 0.03 X10^3/uL; Basophil% 0.3 % (0-1); Eosinophil# 0.13 X10^3/uL; Eosinophils% 1.5 % (0-5); Hematocrit 30.1 % (37-47); Lymphocyte # 2.02 X10^3/ul (4.0); Lymphocyte % 22.7 % (19-41); Mean Corp Hgb Conc 29.9 g/dL (32-36); Mean Corpuscular Hgb 24.3 pg (27.0-32.0); Mean Corpuscular Volume 81.1 fL (81-99); Mean Platelet Vol. 10.5 fl (6.2-12.0); Monocyte# 0.53 X10^3/uL; NRBC Flagged by Analyzer 0 % (0-5); Neutrophil # 6.16 X10^3/uL (2.7-7.7); Neutrophil % 69.2 % (47-70); POSITIVE MORPHOLOGY YES; Platelet Count 320 K/mm3 (150-450); RBC Distribution Width CV 24.9 % (11.6-14.6); Red Blood Count 3.71 M/mm3 (4.2-5.4); White Blood Count 8.9 K/mm3 (4.4-11.0)
[2020-07-12 08:32] LABS: Differential Indicated SCAN CRITERIA MET
[2020-07-12 08:49] LABS: Ferritin 41 ng/mL (8-252); Iron 36 ug/dL (50-170); T4 Free Direct 0.99 ng/dL (0.76-1.46); Thyroid Stim Hormone (TSH) 2.61 uIU/mL (0.358-3.74)
[2020-07-12 08:50] LABS: Anisocytosis 2+; Differential Comment SCANNED; Macrocytosis 1+; Microcytosis 1+
[2020-07-12 08:58] VITALS: BP 122/80; PULSE 72; RESP 12; TEMP 36.8; O2SAT 100
== END ==
PROVIDERS: PCP Family Medicine; Referring Provider Family Medicine; Visit Provider Family Medicine
DX: D50.9 Iron deficiency anemia, unspecified (principal)
CPT/HCPCS: 96365; 82728; 83540; 84439; 84443; 85025; J1756; J7050; A4216

== ENCOUNTER → 2020-12-08 09:58 | Outpatient (CLI) | payer OTHER, SELFPAY ==
[2020-12-14 09:58] LABS: HPV APTIMA, High Risk Negative
== END ==
PROVIDERS: PCP Family Medicine; Visit Provider Student in an Organized Health Care Education/Training Program
DX: Z12.4 Encounter for screening for malignant neoplasm of cervix (principal); D50.9 Iron deficiency anemia, unspecified
CPT/HCPCS: 87624; 88175; G0145

== ENCOUNTER → 2020-12-29 11:39 | Outpatient (CLI) | payer OTHER, SELFPAY ==
[2020-12-29 12:28] LABS: Absolute Lymphocyte Count 2.14 X10^3/uL (0.83-4.51); Absolute Neutrophil Count 3.7 X10^3/uL (2.0-7.7); Basophil# 0.05 X10^3/uL; Basophil% 0.7 % (0-1); Eosinophil# 0.15 X10^3/uL; Eosinophils% 2.2 % (0-5); Hematocrit 34.3 % (37-47); Hemoglobin 10.7 g/dL (12.0-15.0); Lymphocyte # 2.14 X10^3/ul (0.83-4.51); Mean Corp Hgb Conc 31.2 g/dL (32-36); Mean Corpuscular Hgb 28.2 pg (27.0-32.0); Mean Corpuscular Volume 90.3 fL (81-99); Mean Platelet Vol. 9.9 fl (6.2-12.0); Monocyte# 0.63 X10^3/uL; Monocyte% 9.4 % (0-10); NRBC Flagged by Analyzer 0 % (0-5); Neutrophil # 3.68 X10^3/uL (2.7-7.7); Neutrophil % 55.1 % (47-70); Platelet Count 426 K/mm3 (150-450); RBC Distribution Width CV 14.6 % (11.6-14.6); RBC Distribution Width SD 48.4 fl (35.1-43.9); White Blood Count 6.7 K/mm3 (4.4-11.0)
[2020-12-29 13:07] LABS: Ferritin 5 ng/mL (8-252); Iron 17 ug/dL (50-170)
== END ==
PROVIDERS: PCP Family Medicine; Referring Provider Family Medicine; Visit Provider Family Medicine
DX: D50.9 Iron deficiency anemia, unspecified (principal)
CPT/HCPCS: 36415; 82728; 83540; 85025

== ENCOUNTER → 2021-03-13 17:02 | Outpatient (CLI) | payer OTHER, SELFPAY ==
[2021-03-16 03:07] LABS: Chlamydia By Nucleic Acid AMP Negative (Negative)
[2021-03-16 11:00] LABS: Gonococcus By Nucleic Acid AMP Negative (Negative)
== END ==
PROVIDERS: PCP Family Medicine; Visit Provider Student in an Organized Health Care Education/Training Program
DX: Z30.430 Encounter for insertion of intrauterine contraceptive device (principal)
CPT/HCPCS: 87491; 87591

== ENCOUNTER 2021-05-18 14:57 | Outpatient (RCR) | payer BC, SELFPAY ==
--- NOTE | 2021-05-18 15:59 | HP.PTEVAL_ITS ---
Patient's Visit Information TRISTIN STORY is a 41 year old F referred to Physical Therapy by Dr. Jalen Ball DO with a diagnosis of Dizziness and Giddiness. Date of Evaluation: 05/18/21 Physical Therapist: SUDHEER Nowak - Visit Plan Frequency: 1-2x /Week Duration: 2 Months Plan: 1-2X/ week for 8 weeks for VOR exercises to decrease dizziness. HEP: smooth pursuit vertical and horizontal - Subjective Over a year ago she had her first episode when she looked down and then up and saw the screen funny. More recent the act of looking up causes her to vomit, room to spin. They are happening more often. If she turned her head side to side it would throw her equillibrium off. 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 She can look side to side now and she is ok. The episodes last 20-30 minutes. The last episode has never competely gone away. For awhile after this last episode (which was 2 weeks ago) it would wake her up when she rolls over cause she would feel like she was going to fall out of bed.. .Room was spinning it would last for 30 seconds and mostly with position changes. She tried to do the [employer] Manuver several times but it did nothing. Currently she fells good but it comes and on and off and makes her feel spacy.... She can feel it is there if she turns her head but not awful. her balance has always been bad. She has eye and face pressure... can correlate with her dizziness. She has no neck issues. - Objective -Hallpike B for dizziness and nystagmus. -Roll test B for dizziness and nystagmus. Smooth Pursuit.... horizontal... eyes wanted to go crossed a little eye pressure X 30 seconds. Smooth Pursuit... vertical..... eyes had a hard time focus on the moving target and she would shoot and over shoot, when the stationary object was arm length away pt;s L eye would move more toward the bridge of her nose ( more cross eyed) and pt would begin to see double. VOR X 1 horizontal X 15 seconds pt became dizzy and had to stop. VOR X 1 vertical X 20 seconds pt became dizzy and had to stop - Balance/Special Test Scores Dizziness Score: 40 - Goals Goal 1:: I HEP Goal Time Frame: 4-6 Weeks Goal 2:: Be able to complete smooth pursuit X 60 seconds for horizontal and vertical without having dizziness Goal Time Frame: 4-6 Weeks Goal 3:: Be able to complete 60 seconds VOR X 1 vertical and horizontal in standing without having dizziness Goal Time Frame: 4-6 Weeks Goal 4:: Abolish overall feeling of dizziness Goal Time Frame: 4-6 Weeks - Rehabilitation Potential Rehabilitation Potential: Good - Anticipated Interventions Patient/Client Instruction: Educate patient on: Condition, Plan of Care For the Purpose of:: To decrease pain, To improve nutrient delivery to tissue, To improve muscle performance and motor function, To improve ability to perform ADL's, To increase tolerance to activity/condition/position, To improve performance and independence with ADL's, To improve ability of physical actions for home/community/work/leisure, To improve gait and locomotor functions, To improve endurance, To improve balance Therapeutic Exercise to Include: Strength training, Balance training, Postural training, Gait and locomotor training, Neuromotor development, Active ROM For the Purpose of:: To improve nutrient delivery to tissue, To improve muscle performance and motor function, To improve ability to perform ADL's, To increase tolerance to activity/condition/position, To improve performance and independence with ADL's, To improve gait and locomotor functions, To improve health of tissue, To decrease soft tissue restriction, To improve balance, To improve safety with gait Thank you for the opportunity to evaluate your patient. For Medicare and Medicare HMO plans, please review the plan of care and approve it. It will need to be FAXED BACK to us at [phone] for Medicare purposes. For Medicare only, by signing this I certify the plan of care. Please let me know if there are questions or concerns regarding this plan of care. Physician Signature: Date:
--- NOTE | 2021-08-24 11:24 | HP.PT.NRP ---
TRISTIN STROY was seen in my office for initial evaluation on 05/18/21. The following Plan of Care was established for this patient: Initial Frequency: 1-2x /Week Initial Duration: 2 Months Patient/Client Instruction: Educate patient on: Condition, Plan of Care For the Purpose of:: To decrease pain, To improve nutrient delivery to tissue, To improve muscle performance and motor function, To improve ability to perform ADL's, To increase tolerance to activity/condition/position, To improve performance and independence with ADL's, To improve ability of physical actions for home/community/work/leisure, To improve gait and locomotor functions, To improve endurance, To improve balance Therapeutic Exercise to Include: Strength training, Balance training, Postural training, Gait and locomotor training, Neuromotor development, Active ROM For the Purpose of:: To improve nutrient delivery to tissue, To improve muscle performance and motor function, To improve ability to perform ADL's, To increase tolerance to activity/condition/position, To improve performance and independence with ADL's, To improve gait and locomotor functions, To improve health of tissue, To decrease soft tissue restriction, To improve balance, To improve safety with gait This patient was last seen in our office 05/18/21. Pertinent comments regarding their Physical therapy will appear below: JIM PT as pt did not show up for her scheduled appointment after the initial eval. JIM PT At this point I will be discontinuing this patient from physical therapy. I would be happy to see this patient again in the future if found appropriate by the physician. Thank you! Cinthya Hernandes, MPT Balance/Gait/Functional tests - Balance/Special Test Scores Dizziness Score: 40
== END 2021-05-18 19:00 | disposition home or self-care (01) ==
LOC: PT 14:57
PROVIDERS: PCP Family Medicine; Referring Provider Family Medicine; Visit Provider Family Medicine
DX: R42 Dizziness and giddiness (principal)
CPT/HCPCS: 97161

== ENCOUNTER → 2021-06-07 13:01 | Outpatient (CLI) | payer BC, SELFPAY ==
[2021-06-07 13:14] VITALS: BP 118/66; PULSE 74; RESP 16; TEMP 36.3; O2SAT 100; BMI 34.3
[2021-06-07] MEDS: Sodium Ferric Gluconat 250 MG in 0.9% Normal Saline 250 ML 135 MG IV (13:27)
[2021-06-07] MEDS: 0.9% NaCl IVPB Med Flush (250 mL) 15 ML IV (13:27)
[2021-06-07] MEDS: 0.9% NaCl Peripheral Flush Adult/Peds IV (13:27)
[2021-06-07 15:58] VITALS: BP 109/59; PULSE 76; RESP 16; TEMP 36.5; O2SAT 100
== END ==
PROVIDERS: PCP Family Medicine; Referring Provider Family Medicine; Visit Provider Family Medicine
DX: D50.9 Iron deficiency anemia, unspecified (principal)
CPT/HCPCS: 96365; 96366; J7050; A4216; J2916

== ENCOUNTER → 2021-06-21 12:48 | Outpatient (CLI) | payer BC, SELFPAY ==
[2021-06-21 13:01] VITALS: BP 111/63; PULSE 75; RESP 16; TEMP 36.1; O2SAT 99
[2021-06-21] MEDS: 0.9% NaCl Peripheral Flush Adult/Peds IV (13:03)
[2021-06-21] MEDS: 0.9% NaCl IVPB Med Flush (250 mL) 15 ML IV (13:04)
[2021-06-21] MEDS: Sodium Ferric Gluconat 250 MG in 0.9% Normal Saline 250 ML 135 MG IV (13:25)
[2021-06-21 15:52] VITALS: BP 111/63; PULSE 63; RESP 16; TEMP 36.2
== END ==
LOC: MEDOUTP 12:49
PROVIDERS: PCP Family Medicine; Referring Provider Family Medicine; Visit Provider Family Medicine
DX: D50.9 Iron deficiency anemia, unspecified (principal)
CPT/HCPCS: 96365; 96366 ×2; J7050; A4216; J2916

== ENCOUNTER → 2021-07-05 13:02 | Outpatient (CLI) | payer BC, SELFPAY ==
[2021-07-05 13:16] VITALS: BP 110/60; PULSE 52; RESP 16; TEMP 36.3; O2SAT 100; BMI 34.3
[2021-07-05] MEDS: 0.9% NaCl Peripheral Flush Adult/Peds IV (13:19)
[2021-07-05] MEDS: Sodium Ferric Gluconat 250 MG in 0.9% Normal Saline 250 ML 135 MG IV (13:22)
[2021-07-05] MEDS: 0.9% NaCl IVPB Med Flush (250 mL) 15 ML IV (15:40)
[2021-07-05 15:59] VITALS: BP 112/60; PULSE 65; RESP 16; TEMP 36.5; O2SAT 99
== END ==
PROVIDERS: PCP Family Medicine; Referring Provider Family Medicine; Visit Provider Family Medicine
DX: D50.9 Iron deficiency anemia, unspecified (principal)
CPT/HCPCS: 96365; 96366 ×2; J7050; A4216; J2916

== ENCOUNTER → 2021-07-19 12:58 | Outpatient (CLI) | payer BC, SELFPAY ==
[2021-07-19] MEDS: 0.9% NaCl Peripheral Flush Adult/Peds IV (13:22)
[2021-07-19] MEDS: 0.9% NaCl IVPB Med Flush (250 mL) 15 ML IV (13:22)
[2021-07-19] MEDS: Sodium Ferric Gluconat 250 MG in 0.9% Normal Saline 250 ML 135 MG IV (13:23)
[2021-07-19 13:28] VITALS: BP 126/67; PULSE 59; RESP 16; TEMP 36.4; O2SAT 100
[2021-07-19 15:34] VITALS: BP 102/60; PULSE 59; RESP 16; TEMP 36.5; O2SAT 100
== END ==
PROVIDERS: PCP Family Medicine; Referring Provider Family Medicine; Visit Provider Family Medicine
DX: D50.9 Iron deficiency anemia, unspecified (principal); K90.9 Intestinal malabsorption, unspecified
CPT/HCPCS: 96365; 96366; J7050; A4216; J2916

== ENCOUNTER → 2022-02-20 | Outpatient (CLI) | payer BC, SELFPAY | END | disposition home or self-care (01) | PROVIDERS: PCP Family Medicine; Referring Provider Family Medicine; Visit Provider Family Medicine | DX: Z20.828 Contact with and (suspected) exposure to other viral communicable diseases (principal) | CPT/HCPCS: 87635; U0003; U0005 ==

== ENCOUNTER → 2023-12-03 | Outpatient (CLI) | payer OTHER, SELFPAY ==
--- NOTE | 2023-12-03 10:12 | RAD_ITS ---
STUDY: X-RAY - RIGHT FOOT CLINICAL: Female, 43 years old. Right third toe injury TECHNIQUE: 3 view(s) of the foot. COMPARISON: Comparison is made with prior study April 20, 2019. FINDINGS: Normal talus, calcaneus, and tarsal bones. Prior ORIF of the medial and lateral malleoli. Normal visualized subtalar, talonavicular, calcaneocuboid, tarsal and tarsometatarsal articulations. Prior screw fixation at the base of the fifth metatarsal. Normal metatarsophalangeal joint of the great toe. Normal tibial and fibular sesamoid bones. Normal interphalangeal joint of the great toe. Normal phalanges of the great toe. Normal second through fifth metatarsophalangeal joints. Nondisplaced oblique fracture through the midportion of the proximal phalanx of the third toe. There is non-specific soft tissue swelling of the foot. RAD/Foot min 3 Views IMPRESSION: Nondisplaced oblique fracture through the proximal phalanx of the third toe with overlying soft tissue swelling. Electronically Signed: Jon Pederson MD at 11:02 EDT ,
== END | disposition home or self-care (01) ==
PROVIDERS: PCP Family Medicine; Referring Provider Physician Assistant Surgical; Visit Provider Physician Assistant Surgical
DX: S90.121A Contusion of right lesser toe(s) without damage to nail, initial encounter (principal)
CPT/HCPCS: 73630

== ENCOUNTER → 2024-06-22 | Outpatient (CLI) | payer OTHER, SELFPAY ==
--- NOTE | 2024-06-22 07:28 | BI_ITS ---
MAMMOGRAPHY - BILATERAL SCREENING REASON FOR EXAM: Female, 44 years old. Routine annual screening examination. PERTINENT HISTORY: Aunt with breast cancer. TECHNIQUE: Digital bilateral breast felix (3D mammographic acquisition) in the CC and MLO projections. 2-D mediolateral oblique (MLO) and craniocaudad (CC) views of both breasts were obtained. CAD: Full Field Digital Mammography with Computer Added Detection was performed. COMPARISON: None. Baseline examination. FINDINGS: Breast Composition: The breasts are heterogeneously dense, which may obscure small masses. There are no dominant masses or suspicious calcifications. No other significant abnormalities are identified. BI/SCRN MAMM (CAD)W/FELIX BILAT IMPRESSION: Negative screening mammogram. Yearly followup mammogram recommended. (A) ASSESSMENT CATEGORY: BIRADS Category 1: Negative. A letter regarding these results will be sent to the patient by the facility within 30 days. Approximately 10% of breast cancers are not detected by mammography. A normal mammogram should not delay biopsy of a clinically suspicious abnormality. [id number] Electronically Signed: Jon Pederson MD at 8:22 EDT ,
== END | disposition home or self-care (01) ==
PROVIDERS: PCP Family Medicine; Referring Provider Obstetrics & Gynecology; Visit Provider Obstetrics & Gynecology
DX: Z12.31 Encounter for screening mammogram for malignant neoplasm of breast (principal)
CPT/HCPCS: 77063; 77067

== ENCOUNTER → 2025-06-27 | Outpatient (CLI) | payer OTHER, SELFPAY | END | disposition home or self-care (01) | LOC: MTLAB 08:26 | PROVIDERS: PCP Family Medicine; Referring Provider Family Medicine; Visit Provider Family Medicine | DX: Z00.00 Encounter for general adult medical examination without abnormal findings (principal); R53.83 Other fatigue | CPT/HCPCS: 36415; 83036; 84443 ==

== ENCOUNTER → 2025-07-28 | Outpatient (CLI) | payer OTHER, SELFPAY ==
--- NOTE | 2025-07-28 12:06 | BI_ITS ---
EXAM: SCRN MAMM (CAD)W/FELIX BILAT DATE: 07/28/2025 CLINICAL HISTORY: F, Age 45 y/o , SCREENING Aunt with breast cancer. TECHNIQUE: Procedure Code: [id number] Modality: MG Procedure: SCRN MAMM (CAD)W/FELIX BILAT COMPARISON: Prior exam(s) dated June 22, 2024.. FINDINGS: TISSUE DENSITY: The breasts are heterogeneously dense, which may obscure small masses. Bilateral Breast Mammographic Findings: No significant masses, calcifications or other abnormalities are identified. No suspicious masses, areas of developing architectural distortion, or suspicious calcifications. There has been no significant interval change. BI/SCRN MAMM (CAD)W/FELIX BILAT IMPRESSION: Stable bilateral screening mammogram. OVERALL FINAL ASSESSMENT BI-RADS 1: NEGATIVE. RECOMMENDATION: Routine annual follow-up in 1 Year Additional Recommendation none A letter with findings and recommendations will be mailed to the patient. Reading Location: [place] [id number]
== END | disposition home or self-care (01) ==
LOC: OPBI 12:05
PROVIDERS: PCP Family Medicine; Referring Provider Nurse Practitioner Women's Health; Visit Provider Nurse Practitioner Women's Health
DX: Z12.31 Encounter for screening mammogram for malignant neoplasm of breast (principal); Z80.3 Family history of malignant neoplasm of breast
CPT/HCPCS: 77063; 77067